=== PATIENT | male | born 2000 | race Caucasian/White ===

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

== ENCOUNTER 2022-01-05 13:19 | Emergency (ER) | payer OTHER ==
[~2022-01-05] VITALS: Ht 177.8 cm; Wt 68.2 kg
[2022-01-05 16:55] VITALS: BP 130/77
== END 2022-01-05 17:00 | disposition home or self-care (01) ==
LOC: EDBD 13:19 → M ED 13:19
DX: M79.604 Pain in right leg (principal); M79.602 Pain in left arm; V49.40XA Driver injured in collision with unspecified motor vehicles in traffic accident, initial encounter; F17.200 Nicotine dependence, unspecified, uncomplicated

== ENCOUNTER 2022-01-11 10:43 | Emergency (ER) | payer OTHER ==
[~2022-01-11] VITALS: Ht 177.8 cm; Wt 69.3 kg
[2022-01-11] MEDS ORDERED: TRAM50TA2 PO (10:59)
[2022-01-11 14:13] VITALS: BP 132/68
== END 2022-01-11 14:13 | disposition home or self-care (01) ==
LOC: M ED 10:43
DX: F07.81 Postconcussional syndrome (principal); V49.40XD Driver injured in collision with unspecified motor vehicles in traffic accident, subsequent encounter; F17.210 Nicotine dependence, cigarettes, uncomplicated